=== PATIENT | male | born 1935 | race Caucasian/White ===

== ENCOUNTER 2016-11-27 17:22 | Inpatient (IN) | payer MEDICARE, BC ==
--- NOTE | ~2016-11-27 | HP ---
History And Physical [address] [address] NAME: RAFITA PACK : 37 STATUS : ADM IN [facility]#: [id number] AGE: 81 ADM/REG DATE : 11/27/16 MR#: [id number] REPORT SERV DATE: 11/28/16 DICTATED BY: BRITT ROGERS DATE: 11/27/16 REPORT STATUS : Draft TRANSCRIBED BY: VICKI DATE: 11/27/16 DATE OF ADMISSION: 11/27/2016 CHIEF COMPLAINT: Status post fall on Friday with intractable left hip pain and inability to walk since then. HISTORY OF PRESENT ILLNESS: This is a very pleasant 81-year-old gentleman. He has a history of coronary artery disease, status post CABG in 1986. He has a PTCA and stent performed by Dr. Perez in 2015, also history of AAA repair and right lower extremity bypass as well as carotid graft, history of chronic kidney disease stage 3 with a baseline creatinine around 1.7, history of hypertension, COPD with a prior tobacco abuse, hyperlipidemia, degenerative joint disease, osteoarthritis, and hearing loss. That he had an accidental fall on Friday, he tripped over a hose outside his house and after that, he used a walker and help of his to get into the house. He was not able to walk since then, but he has not sought any immediate medical attention. However, since the pain and inability to walk became much more severe, the patient has decided to present to emergency room where after initial evaluation, Hospitalist Service has been asked for admission, further evaluation, and treatment since the patient has been diagnosed with left hip fracture. The patient did not have any chest pain or increasing shortness of breath. No PND or orthopnea. No presyncopal or syncopal episodes. No nausea. No vomiting. No diarrhea or constipation. No other complaints. PAST MEDICAL HISTORY: Significant for coronary artery disease, status post CABG, status post PTCA and stent performed by Dr. Perez in 2015. He has a history of left subclavian vein occlusion, history of peripheral vascular disease with AAA repair, history of chronic kidney disease stage 3 with a creatinine 1.7, history of hypertension, COPD with prior tobacco abuse, quitting in 2010, hyperlipidemia, degenerative joint disease, osteoarthritis, hearing loss. PAST SURGICAL HISTORY: Includes CABG in 1986, also right lower extremity bypass and triple AAA repair, appendectomy, penile implant, and ear surgery. SOCIAL HISTORY: He does not smoke. He quit in 2010. No alcohol. No IV drugs. ALLERGIES: HE DOES NOT HAVE ANY DRUG ALLERGIES. FAMILY HISTORY: Significant for coronary artery disease and CHF. MEDICATIONS: At home include albuterol, aspirin, Lipitor, Coreg, Plavix, Lasix, Neurontin, Nitrostat, Percocet, and Zoloft. REVIEW OF SYSTEMS: A 14-point review of systems has been obtained and pertinent positive has been listed into the history of present illness. Otherwise, negative except those underlying above. PHYSICAL EXAMINATION: VITAL SIGNS: Currently, the patient is afebrile. Blood pressure 163/57, heart rate 71, History And Physical [address] [address] NAME: RAFITA PACK : 37 STATUS : ADM IN [facility]#: [id number] AGE: 81 ADM/REG DATE : 11/27/16 MR#: [id number] REPORT SERV DATE: 11/28/16 DICTATED BY: BRITT ROGERS DATE: 11/27/16 REPORT STATUS : Draft TRANSCRIBED BY: IVCKI DATE: 11/27/16 respiratory rate 14, saturating 96% on room air. GENERAL: He is a very pleasant, well-developed, well-nourished, gentleman, hard of hearing, in no acute distress. He is alert and oriented x3. Nonfocal. He follows commands appropriately. HEENT: Mucous membranes are moist. NECK: Supple. No thyromegaly. No lymphadenopathy. No JVD appreciated. CHEST: Eval shows bilateral air entry, clear anteroposterior. No wheezes, crackles, or rhonchi appreciated. CARDIOVASCULAR: He is regular rate and rhythm. S1, S2 positive. No S3, no S4. No murmurs, rubs, or gallops appreciated. ABDOMEN: Soft. Positive bowel sounds. Nontender. No guarding. No rebound. EXTREMITIES: No clubbing, cyanosis, or edema. NEUROLOGIC: He is alert and oriented x3. He follow all his commands. Cranial nerves appear intact. LABORATORY DATA: Labs from today include, sodium 138, potassium 4.5, chloride 103, CO2 of 24, BUN 37, creatinine 1.70, glucose is 114. White count is 13, hemoglobin 11.8, hematocrit 36.4, and platelets are 184. His INR is 1.2. His chest x-ray, portable, does not show any acute cardiopulmonary abnormalities with prior CABG and AP x-ray showed a left hip fracture. ASSESSMENT AND PLAN: This is a very pleasant 81-year-old gentleman status post fall with. 1. Left hip fracture. 2. History of coronary artery disease, status post prior coronary artery bypass graft, status post percutaneous transluminal coronary angioplasty and stent. 3. Peripheral vascular disease. 4. History of abdominal aortic aneurysm repair. 5. Chronic kidney disease stage 3. 6. Hypertension. 7. Chronic obstructive pulmonary disease. 8. Hyperlipidemia. 9. Degenerative joint disease, osteoarthritis. The patient is going to be admitted to Hospitalist Service. We are going to consult Orthopedic which I talked personally with Dr. Bosch for a possible surgery in the morning. Keep him n.p.o. past mid 9, reasonable pain and nausea control. We are going to check on set of cardiac enzymes. Check UA urine cultures as well and continue his home medications including aspirin and Plavix after discussing with Dr. Bosch. 10.History of coronary artery disease with prior coronary artery bypass graft and recent percutaneous transluminal coronary angioplasty and stent in 2016. We will check a set of cardiac enzymes. Continue beta maxwell. Continue his aspirin and Plavix for right now and consult Dr. Perez from Cardiology Service for clearance. 11.History of peripheral vascular disease, status post right lower extremity bypass and abdominal aortic aneurysm repair. 12.Hypertension. We will continue beta maxwell and provide p.r.n. hydralazine as needed. 13.Chronic obstructive pulmonary disease with history of tobacco abuse. Provide p.r.n. nebulizer as needed. History And Physical [address] [address] NAME: RAFITA PACK : 37 STATUS : ADM IN PAT#: [id number] AGE: 81 ADM/REG DATE : 11/27/16 MR#: [id number] REPORT SERV DATE: 11/28/16 DICTATED BY: BRITT ROGERS DATE: 11/27/16 REPORT STATUS : Draft TRANSCRIBED BY: VICKI DATE: 11/27/16 14.Hyperlipidemia. Continue his statins. We will provide reasonable pain and nausea control as well as GI and DVT prophylaxis with SCDs. That has been discussed extensively with the patient as well as the patient's . All the questions have been answered in full. Further workup and recommendation pending above. It is worthwhile to note that the patient is going to be followed up by Hospitalist Service. CF/MODL Britt Rogers M.D. / [id number] CC: MD Valeriano Aguilar M.D.
--- NOTE | ~2016-11-27 | IDS ---
Interim Discharge Summary [facility] [address] [place]. [address] NAME: RAFITA PACK : 37 STATUS : ADM IN [facility]#: [id number] AGE: 81 ADM/REG DATE : 11/27/16 MR#: [id number] REPORT SERV DATE: 12/01/16 DICTATED BY: PRIYANKA DUKES DATE: 12/01/16 REPORT STATUS : Draft TRANSCRIBED BY: MODL DATE: 12/01/16 ADMISSION DATE: 11/27/2016 DISCHARGE DATE: CONSULTANTS: 1. Dr. Ken Fagan, Cardiology. 2. Dr. Bam Funes, Orthopedic Surgery. PROBLEM LIST: 1. Acute left hip fracture due to trip and fall requiring surgical repair 11/28/2016. 2. Acute blood loss anemia superimposed on chronic anemia with iron deficiency and B12 deficiency. 3. COPD with mild exacerbation. 4. Chronic systolic congestive heart failure with left ventricular ejection fraction 35%. 5. History of coronary artery bypass 1986 and previous stent to a vein graft to the marginal artery in 2014 with known 50% to 75% stenosis at the origin of the posterior descending coronary artery as of heart catheterization, 03/2016. Stent placed to the vein graft on the second marginal as of 04/04/2016. 6. Peripheral arterial disease with previous abdominal aortic aneurysm repair, previous right leg bypass, and a known occluded left subclavian artery. 7. Postoperative ileus. 8. Stage 3 chronic kidney disease. 9. Hypertension. 10.Hard of hearing. 11.History of osteoarthritis. HISTORY: The patient tripped over a hose in the yard, fell, was not able to walk well, finally presented to the emergency room several days after this. He was found to have a hip fracture on the left side. He was admitted to our team and was felt to need surgical intervention. Orthopedics, Dr. Funes, saw the patient and did a surgical repair of that fracture on 11/28/2016. Postop, the patient has had some mild worsening of his COPD. He has a chronic wet cough that he states has not much worse than as usual. He is getting some supplemental oxygen and nebulizer treatments. He has also had some postoperative ileus which has responded so far to lactulose. The patient is making slow, but steady progress with physical therapy and will need referral to inpatient rehab. Per Orthopedics, he is now on Coumadin postoperatively and he was on aspirin and Plavix chronically, but based on the Lancet study that showed that leaving aspirin off did not increase the risk of thrombosis and it did decrease the risk of bleeding when the patient had to be on Plavix and Coumadin. At this time, we will just have him on Plavix and Coumadin and leave the aspirin off. His aspirin may then be resumed after the prophylactic Interim Discharge Summary [address] [place]. [address] NAME: RAFITA PACK : 37 STATUS : ADM IN PAT#: [id number] AGE: 81 ADM/REG DATE : 11/27/16 MR#: [id number] REPORT SERV DATE: 12/01/16 DICTATED BY: PRIYANKA DUKES DATE: 12/01/16 REPORT STATUS : Draft TRANSCRIBED BY: VICKI DATE: 12/01/16 Coumadin therapy has been completed after the hip fracture repair. RSG/VICKI Priyanka Dukes M.D. / [id number] CC: Kylie Selby M.D.
--- NOTE | ~2016-11-27 | CN ---
Consultation Report [facility] [address] [place]. [address] NAME: RAFITA ALLAN : 37 STATUS : ADM IN [facility]#: [id number] AGE: 81 ADM/REG DATE : 11/27/16 MR#: [id number] REPORT SERV DATE: 11/29/16 DICTATED BY: DOYLE FAGAN DATE: 11/29/16 REPORT STATUS : Draft TRANSCRIBED BY: MODL DATE: 11/29/16 CARDIOLOGY CONSULTATION DATE OF CONSULTATION: 11/29/2016 PRIMARY PLATFORM ATTENDANT: Dr. Herndon. CHIEF COMPLAINT: Fall. REASON FOR CONSULTATION: History of congestive heart failure. HISTORY OF PRESENT ILLNESS: Mr. Allan is a very pleasant 81-year-old white man with history of coronary artery disease, peripheral artery disease, and congestive heart failure. He was in his usual state of health until two days ago, when he fell and injured his left hip. 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 He underwent hip surgery yesterday by Dr. Funes. He is now complaining of mild left hip pain. He has not had any loss of consciousness or dizziness prior to or after his fall. He has had some fatigue, chest heaviness, and shortness of breath, which is about his baseline. He has not had any palpitations. No syncope, dizziness, or edema. REVIEW OF SYSTEMS: All other systems are negative. ALLERGIES: NO KNOWN DRUG ALLERGIES. MEDICATIONS AT HOME: Included albuterol, aspirin, atorvastatin, carvedilol, clopidogrel, furosemide, gabapentin, nitroglycerin, Zoloft, and Percocet. CARDIAC RISK FACTORS: Hypertension, cholesterol, former tobacco, quit in 2010. Positive family history. Denies diabetes. SOCIAL HISTORY: The patient lives in [place], [place]. He is . He has three children, alive and well. He is retired. FAMILY HISTORY: Father at age 63 of heart disease. Brother had heart disease. PAST MEDICAL HISTORY: As per Dr. Herndon's note from 11/18/2016, chronic systolic congestive heart failure with decreased ejection fraction of 35% most recently, 4.5 cm infrarenal abdominal aortic aneurysm, coronary artery disease, status post coronary bypass grafting and percutaneous intervention, carotid bruits, chronic kidney disease stage III, COPD, hyperlipidemia, peripheral vascular disease, status post right femorofemoral bypass, ventricular tachycardia, and hyperlipidemia. Consultation Report [facility] [address] [place]. [address] NAME: RAFITA ALLAN : 37 STATUS : ADM IN PAT#: [id number] AGE: 81 ADM/REG DATE : 11/27/16 MR#: [id number] REPORT SERV DATE: 11/29/16 DICTATED BY: DOYLE FAGAN DATE: 11/29/16 REPORT STATUS : Draft TRANSCRIBED BY: VICKI DATE: 11/29/16 PHYSICAL EXAMINATION: GENERAL: He is a well-developed, well-nourished, very elderly white man, in moderate left hip pain. VITAL SIGNS: Blood pressure is 103/51, pulse 75, temperature 98 degrees Fahrenheit. Weight is 73.9 kilos. HEENT: Carotids 2+ and symmetrical. Healed surgical scars. Bilateral carotid bruits. No JVD. No thyromegaly. LUNGS: Clear anteriorly. No use of accessory muscles. CHEST: Healed sternotomy and additional surgical scars. HEART: Regular rate and rhythm without murmur, gallop, or rub. ABDOMEN: Positive bowel sounds. Soft, nontender. EXTREMITIES: Pulses 2+ and symmetrical. No cyanosis, clubbing, or edema. Left hip is bandaged. He is rotated on the bed. BACK: No CVA tenderness. MUSCULOSKELETAL: Good tone. NEURO: Alert and oriented x3. Diminished auditory acuity. LABORATORY AND DIAGNOSTIC STUDIES: The EKG reveals sinus rhythm, left axis deviation, baseline artifact, nonspecific ST-T wave changes consistent with anterolateral ischemia, compared to 04/05/2016, no significant change by the official reading. The laboratory examination includes hemoglobin of 9.7, hematocrit 31.1. INR 1.3. Sodium 143, potassium 4.8, chloride 110, CO2 of 24, glucose 97, BUN 41, creatinine 1.3. The total left hip prosthesis in anatomic alignment. The chest x-ray reveals cardiomegaly, stable, increased width of the upper mediastinum. The BNP level is 699. Hemoglobin A1c is 5.6. IMPRESSION: 1. Left hip fracture, status post left hip surgery yesterday, doing okay so far. 2. Chronic systolic congestive heart failure with last LVEF of 35%. 3. Coronary artery disease, status post coronary artery bypass grafting, stable. 4. Peripheral artery disease, status post surgeries with history of abdominal aortic aneurysm. 5. Chronic kidney disease, stage III. 6. Cardiac risk factors including hypertension, cholesterol, former tobacco, and positive family history. 7. History of ventricular tachycardia, on beta-blockers. RECOMMENDATIONS: 1. Already postop, doing okay, watch for congestive heart failure. 2. Continue medications. 3. Consider ICD therapy at some point. Consultation Report [address] [address] NAME: RAFITA ALLAN : 37 STATUS : ADM IN [facility]#: [id number] AGE: 81 ADM/REG DATE : 11/27/16 MR#: [id number] REPORT SERV DATE: 11/29/16 DICTATED BY: DOYLE FAGAN DATE: 11/29/16 REPORT STATUS : Draft TRANSCRIBED BY: VICKI DATE: 11/29/16 GAB/VICKI Doyle Fagan M.D. / [id number] CC: Kylie Pineda R. HENRY
--- NOTE | ~2016-11-27 | HP ---
History And Physical [facility] [place]. [address] NAME: RAFITA PACK : 37 STATUS : ADM IN [facility]#: [id number] AGE: 81 ADM/REG DATE : 11/27/16 MR#: [id number] REPORT SERV DATE: 11/28/16 DICTATED BY: TEDDY GOODE DATE: 11/28/16 REPORT STATUS : Draft TRANSCRIBED BY: MODL DATE: 11/28/16 DATE OF ADMISSION: 11/27/2016 CHIEF COMPLAINT: Left hip pain. HISTORY: A 81-year-old male who fell and injured his left hip. 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 He denies pain or injury elsewhere. No associated loss of consciousness, shortness of breath, chest pain etc. PHYSICAL EXAMINATION: HEENT: Atraumatic, normocephalic. NECK: Supple. CHEST: Symmetric, nontender. LUNGS: Per AA evaluation. CV: Regular. ABDOMEN: Soft. No mass. EXTREMITIES: Left upper extremity is short and externally rotated. Skin is intact. Compartment supple. 2+ pulses. NEURO: Sensorimotor without deficit. X-RAY: Displaced left femoral neck fracture. ASSESSMENT: Displaced left femoral neck fracture. PLAN: Left total hip arthroplasty. Risks, benefits, etc, explained, and the patient wishes to proceed. WTB/VICKI Paulette Goode M.D. / [id number] CC: Kylie Pineda M.D.
--- NOTE | ~2016-11-27 | DS ---
Discharge Summary [address] [place]. [address] NAME: RAFITA ALLAN : 37 STATUS : DIS IN PAT#: [id number] AGE: 81 ADM/REG DATE : 11/27/16 MR#: [id number] REPORT SERV DATE: 12/07/16 DICTATED BY: ROSELYN NIÑO DATE: 12/06/16 REPORT STATUS : Draft TRANSCRIBED BY: MODL DATE: 12/06/16 ADMISSION DATE: 11/27/2016 DISCHARGE DATE: 12/06/2016 The patient was admitted to the Hospitalist Service. CONSULTANTS: 1. Dr. Jose De Jesus Funes, Orthopedics. 2. Dr. Ken Fagan, Cardiology. DISCHARGE DIAGNOSES: 1. Left total hip arthroplasty, status post mechanical fall with fracture. 2. Hospital-acquired pneumonia, treated. 3. Acute exacerbation of chronic obstructive pulmonary disease. 4. Chronic kidney disease, stage 3. 5. Chronic systolic heart failure with known ejection fraction of 35%. 6. Acute blood loss anemia postoperatively with chronic iron-deficiency anemia and a low B12 level. 7. History of peripheral vascular disease with abdominal aortic aneurysm repair. 8. Coronary artery disease, status post coronary artery bypass grafting in 1986 with subsequent percutaneous coronary intervention and stent in 2015. 9. Hypertension. 10.Depression. HISTORY OF PRESENT ILLNESS: For complete history, please refer to admission H and P by Dr. Britt Wheeler and interim discharge summary by Dr. Bill Dukes. This discharge summary covers dates 12/02/2016 through 12/06/2016. I saw Mr. Allan on 12/02/2016. He was status post left total hip arthroplasty, day #4. He had a loose nonproductive cough. A procalcitonin level of 0.36. His vital signs were stable. He denied any chest pain or shortness of breath. He did have a small bowel movement first since surgery. On 12/02/2016, I did resume his home dose Lasix 20 mg p.o. daily. Plans were being made for halfway at discharge as patient was too weak to return home. At this point, on 12/03/2016, Mr. Allan complained of not feeling well in the morning. He had nausea and vomiting with some questionable diarrhea. His reported that he did not eat any dinner the night before and no breakfast that morning. She also noted that he had a cough. He was taking 2 person assist to get up to the bedside commode and his weakness continued. His abdomen was slightly distended. He had hypoactive bowel sounds. He did have expiratory wheezes bilaterally with scattered rhonchi on my assessment. I ordered a portable chest x-ray as he had a fever earlier in the morning of 100.1. In addition, I ordered a KUB for nausea and vomiting with abdominal distention. I placed him on Mucinex 600 mg p.o. b.i.d. Also started him on Pulmicort and Brovana breathing treatments b.i.d. His chest x-ray showed right lower lobe increased markings suggestive of a developing right lower lobe pneumonia. His KUB showed no evidence of acute abnormality within the abdomen. Mr. Allan was placed on Rocephin 1 g IV q.24 hours. On 12/04/2016, Mr. Shayan Padilla [address] [address] NAME: RAFITA ALLAN : 37 STATUS : DIS IN [facility]#: [id number] AGE: 81 ADM/REG DATE : 11/27/16 MR#: [id number] REPORT SERV DATE: 12/07/16 DICTATED BY: ROSELYN NIÑO DATE: 12/06/16 REPORT STATUS : Draft TRANSCRIBED BY: VICKI DATE: 12/06/16 Jerrell was feeling much better. His procalcitonin level was 0.07. He denied any chest pain, shortness of breath, nausea, or vomiting. He was eating better, and they were aware that we were treating him for his pneumonia. His lungs were clear. He had no wheezing and overall progressing nicely. [facility] was looking at Mr. Allan for potential placement for rehab post acute care discharge. On 12/05/2016, Mr. Allan continued to do well. At this point, he was asking for [facility]. He denied any chest pain, shortness of breath, or abdominal pain. He continued to have a loose nonproductive cough. He still had some scattered rhonchi. He was afebrile and continuing to receive the Rocephin, however, later that day, we discontinued the Rocephin and changed him to Ceftin 500 mg p.o. b.i.d., to start on 12/06/2016 with a followup chest x-ray on the morning of 12/06/2016. On 12/06/2016, upon my assessment in the morning, he was sitting up in the chair. He reported feeling the best he had felt since he had been admitted. He denied any symptoms. His was at bedside and at this point, [facility] had accepted Mr. Allan for inpatient rehabilitation. His O2 saturation was 96 to 97 on 2 L. His vital signs were stable. He did still have a loose nonproductive cough and a very faint scattered expiratory wheeze. Chest x-ray showed improving atelectasis or consolidation. No new airspace disease. Initially, we were told that [facility] would have a bed available for Mr. Allan on Friday, however, later on this date, we were told that a bed was available and Mr. Allan would transfer today. Therefore, on the afternoon of 12/06/2016, he did transfer to [facility] in stable condition. DISCHARGE INSTRUCTIONS: Include: 1. Diet, a 2 g sodium, cardiac diet is recommended. 2. Activity as tolerated with PT and OT evaluate and treat. DISCHARGE MEDICATIONS: As follows: 1. Lipitor 40 mg p.o. at bedtime. 2. Carvedilol 25 mg p.o. b.i.d. 3. Plavix 75 mg p.o. daily. 4. Ceftin 500 mg p.o. b.i.d. Discontinue after last dose on 12/09/2016. 5. Vitamin B12, 1000 mcg p.o. daily. 6. Colace 100 mg p.o. b.i.d. 7. Lasix 20 mg p.o. daily. 8. Gabapentin 600 mg p.o. b.i.d. 9. Ferrous sulfate 300 mg p.o. with breakfast and supper. 10.Folic acid 1 mg p.o. daily. 11.Guaifenesin 600 mg p.o. b.i.d. 12.Theragran 1 tablet p.o. daily. 13.Sertraline 100 mg p.o. daily. 14.Coumadin 2 mg p.o. daily. 15.Albuterol ProAir HFA inhaler two puffs t.i.d. p.r.n. 16.DuoNeb unit dose q.4 while awake. 17.Tylenol 650 mg p.o. or p.r. q.4 hours p.r.n. 18.Mylanta 30 mL p.o. p.r.n. 19.Dulcolax 15 mg p.o. p.r.n. 20.Dulcolax 10 mg suppository p.r.n. 21.Hydrocodone 7.5/325 mg one to two p.o. q.4 hours p.r.n. Discharge Summary [address] [place]. [address] NAME: RAFITA ALLAN : 37 STATUS : DIS IN PAT#: [id number] AGE: 81 ADM/REG DATE : 11/27/16 MR#: [id number] REPORT SERV DATE: 12/07/16 DICTATED BY: ROSELYN NIÑO DATE: 12/06/16 REPORT STATUS : Draft TRANSCRIBED BY: VICKI DATE: 12/06/16 22.Milk of magnesia 30 mL p.o. p.r.n. constipation. 23.Nitroglycerin sublingual 0.4 mg p.r.n. chest pain. 24.Zofran 4 mg p.o. q.4 hours p.r.n. nausea and vomiting. 25.MiraLax one packet p.o. b.i.d. p.r.n. 26.Senokot 2 tablets p.o. at bedtime p.r.n. 27.Ultram 50 mg p.o. q.4 hours p.r.n. 28.Symbicort 160/4.5 mcg, two puffs b.i.d. Rinse mouth after each use. We are holding Mr. Allan's aspirin 81 mg p.o. daily at this point since he is on Coumadin and Plavix. He may resume his low-dose aspirin daily after his Coumadin is discontinued. Other discharge instructions include he will follow up with his primary care provider, Dr. Carlos Lerma after discharge from rehab. He will also follow up with his videotape editor at the appointment previously scheduled on 12/23/2016. BALAJI Minerva Niño [facility]- / [id number] CC: Kylie Pineda M.D.
--- NOTE | ~2016-11-27 | OP ---
Record Of Operation [facility] [address] [place]. [address] NAME: RAFITA PACK : 39 STATUS : ADM IN PAT#: [id number] AGE: 81 ADM/REG DATE : 11/27/16 MR#: [id number] REPORT SERV DATE: 12/04/16 DICTATED BY: TEDDY GOODE DATE: 12/04/16 REPORT STATUS : Draft TRANSCRIBED BY: MODL DATE: 12/04/16 DATE OF PROCEDURE: 11/27/2016 PREOPERATIVE DIAGNOSIS: Displaced left femoral neck fracture. POSTOPERATIVE DIAGNOSIS: Displaced left femoral neck fracture. PROCEDURE: Uncemented total hip arthroplasty, Tri-Lock. SIDE: Left. MICA INSPECTOR: ANESTHESIA: See chart. SIZE: See chart. ESTIMATED BLOOD LOSS: About 100 mL. INDICATIONS FOR SURGERY: PROCEDURE: The patient was taken to the operating room and placed supine on the table without incident. Anesthetic was induced per the anesthesiologist. A Ceballos catheter was placed by the nurse in the standard sterile technique. The correct side for the procedure was identified by preoperative markings and matched with the consent form. All personnel in the room were in agreement regarding the procedure, patient, and side. The patient was then carefully positioned and carefully padded and prepped and draped in the normal sterile fashion. The patient received prophylactic preoperative antibiotics at the appropriate time. The preoperative x-ray was brought up on the monitor. Again, this was reviewed with the staff in the room. According with the preoperative plan, and angled, an anterolateral incision was made centered over the trochanter extending from proximal posterior to distal anterior. Electrocautery was used to maintain meticulous hemostasis. The IT band was split in line with its fibers. A Charnley retractor was placed over saline moistened laps. A standard anterolateral approach to the hip was carried out dissecting in line with the vastus medialis fibers lifting the inferior 20% of the vastus medialis, proximally the interior 20% of the gluteus medius and gluteus minimus tendons off the anterior capsule. Periosteal elevator was used to elevate soft tissue gently directly off the proximal anterior femoral bone. Appropriate retractors were carefully placed. Complete anterior capsulectomy was performed. The hip was then carefully dislocated with a combination of traction maneuver by the assistant store manager sales and scooping the ball out of the socket with a Hohmann. A femoral neck osteotomy was marked according to what had been preoperatively planned with a broach as a template. The distance for the femoral neck osteotomy was measured with a ruler. A femoral neck osteotomy was made with an oscillating saw under appropriate retraction. Meticulous hemostasis was again obtained. The leg was then brought up out of the anterior bag and Record Of Operation [facility] [address] [place]. [address] NAME: RAFITA PACK : 37 STATUS : ADM IN PAT#: [id number] AGE: 81 ADM/REG DATE : 11/27/16 MR#: [id number] REPORT SERV DATE: 12/04/16 DICTATED BY: TEDDY GOODE DATE: 12/04/16 REPORT STATUS : Draft TRANSCRIBED BY: VICKI DATE: 12/04/16 positioned with the lower extremity in external rotation and slight flexion. Acetabular retractors were placed carefully palpating to be sure that they were directly on the bone. The acetabular labrum was excised with electrocautery and rongeur. Pulvinar fat was removed with a large curette and rongeur and again meticulous hemostasis was obtained. Sequential reamers were used in the acetabulum to 1 mm. less than the final size which was chosen. This was felt to give excellent interference fit. The acetabular fossa was then copiously irrigated with pulsatile lavage and actual acetabular component was placed and impacted and checked to make sure it was down snug. The overall alignment was checked. The acetabular separator inserter was then removed. Screws were placed in the standard fashion. A drill, depth gauge and self tapping screw placement taking care not to plunge as the drill holes were carefully placed. A trial liner was then placed and attention directed back to the proximal femur. The leg was placed back into the anterior bag. The proximal femur was prepared using a box chisel following by a T-handled reamer to determine the intramedullary alignment. This was followed by sequential broaches up to the final broach. Once it was seated in the appropriate position, a Calcar reamer was used to plane the proximal femur. Trial reduction was then done with a trial prosthetic ball and neck. A straight edge was used to compare the tip of the trochanter to center of the ball relationship to what had been noted on the preoperative x-ray. Careful reduction was then done of the total hip. Palpation was done to ascertain and compare leg lengths by palpating the nonoperative leg and also by checking soft tissue tension. The stability of the hip was checked in full extension with full external rotation and in full flexion with adduction, flexion and internal rotation. The hip was then redislocated with a bone hook. The femoral trial and femoral broach were removed. The acetabulum was then prepared under appropriate retraction by removing the trial liner. A central hole eliminator was placed and tightened. The shell was irrigated out. The actual insert was placed and impacted and then checked to be sure it was down snug with a joker. The leg was again positioned in the bag. The proximal femur exposed, irrigated and the actual thermal prosthesis was taken from the renewals representative and impacted. Once it was down, the trunnion was cleansed with a wet and dry lap and the prosthetic thermal head was placed and impacted and checked to be sure it was down snug. The acetabulum was irrigated and reduction was obtained. Again, we checked soft tissue tension, leg length and stability as described above. The hip was closed in a layered fashion with a 5 mm. Mersilene tape placed through a single drill hole in the proximal anterior/superior trochanter reattaching the gluteus medius and minimus fibers. The vastus lateralis, gluteus medius, and gluteus minimus were then closed in a sleeve. Drain was placed between the vastus and the IT band exiting distally anteriorly. The IT band was closed. Subcutaneous closure and skin closure were then obtained. A sterile dressing was applied. The patient was carefully positioned into a supine position and then awakened. The patient was then carefully transferred to the stretcher to be returned to the postoperative care unit without incident. COMPLICATION: None. SPECIMENS: Left femoral head. Record Of Operation [address] [place]. [address] NAME: RAFITA PACK : 39 STATUS : ADM IN [facility]#: [id number] AGE: 81 ADM/REG DATE : 11/27/16 MR#: [id number] REPORT SERV DATE: 12/04/16 DICTATED BY: TEDDY GOODE DATE: 12/04/16 REPORT STATUS : Draft TRANSCRIBED BY: MODSusannah DATE: 12/04/16 WTB/MODL Paulette Goode M.D. / [id number] CC: Kylie Pineda M.D.
[~2016-11-27 17:22] MED LIST: ASAB PO; BRILINTA90 MG PO; COREG25 PO; COREG6 PO; DUONEB INH; ENDOCET1 TAB PO; LIPITOR40 PO; LOTE10 PO; NEUR100 PO; NEUR300 PO; NEUR400 PO; NITROSTAT0.4 MG SL; PERCOCET1 TA3 PO; PLAVIX PO; PLETAL100 PO; PLETAL50 PO; PRAVACHOL40 MG PO; PROAIR HFA INH; VYTORIN 10/40 T1 TAB PO; ZOL100 PO; ZOL50 PO
[2016-11-27 18:07] LABS: BASOPHILS 0.1 %; BASOPHILS ABSOLUTE 0.01 10/3/uL (0.0-0.16); EOSINOPHILS 0.4 %; EOSINOPHILS ABSOLUTE 0.05 10/3/uL (0.0-0.53); HEMATOCRIT 36.4 % (40.0-51.0); HEMOGLOBIN 11.8 g/dL (13.6-17.8); IMMATURE GRANULOCYTES 0.3 %; IMMATURE GRANULOCYTES ABSOLUTE 0.04 10/3/uL (0.0-0.11); LYMPHOCYTES ABSOLUTE 1.04 10/3/uL (0.67-4.30); MEAN CORPUS HGB CONC 32.4 g/dL (32.0-36.0); MEAN CORPUSCULAR HEMOGLOB 32.7 pg (26.0-34.0); MONOCYTES 9.2 %; NEUTROPHILS ABSOLUTE 10.66 10/3/uL (2.02-8.40); PLATELET COUNT 184 10/3/uL (150-400); RBC DISTRIBUTION WIDTH 13.6 % (12.0-16.0); RED CELL COUNT 3.61 10/6/uL (4.7-6.1)
[2016-11-27 18:10] LABS: ER CBC TAT 0 Hrs 08 Mins; MANUAL DIFF NO %; MEAN CORPUSCULAR VOLUME 100.8 fL (80-100)
[2016-11-27 18:16] LABS: INTERNATIONAL NORMAL RATI 1.2 UNITS (-); PARTIAL THROMBO TIME 33.4 SEC (22.5-37.2)
[2016-11-27 18:23] LABS: CALCIUM, SERUM 8.6 MG/DL (8.5-10.4); CHLORIDE, SERUM 103 MMOL/L (96-112); CO2 (CARBON DIOXIDE) 24 MMOL/L (24-34); GFR AFRICAN AMERICAN 43 ML/MIN (>=60); GFR NON AFRICAN AMERICAN 38 ML/MIN (>=60); SODIUM, SERUM 138 MMOL/L (135-148)
[2016-11-27 18:28] LABS: BUN (BLOOD UREA NITROGEN) 37 MG/DL (6-23); GLUCOSE, SERUM 114 MG/DL (60-99); POTASSIUM, SERUM 4.5 MMOL/L (3.5-5.3)
[2016-11-27] MEDS ORDERED: L20 PO (18:54)
[2016-11-27] MEDS ORDERED: PCET PO (18:54)
[2016-11-27] MEDS ORDERED: ZOL100 PO (18:54)
[2016-11-27] MEDS ORDERED: PROAIR HFA INH (18:54)
[2016-11-27] MEDS ORDERED: LIPITOR40 PO (18:55)
[2016-11-27] MEDS ORDERED: ASAB PO (18:55)
[2016-11-27] MEDS ORDERED: NITROSTAT0.4 MG SL (18:55)
[2016-11-27] MEDS ORDERED: PLAVIX PO (18:55)
[2016-11-27] MEDS ORDERED: COREG25 PO (18:55)
[2016-11-27] MEDS ORDERED: NEUR600 PO (18:55)
[2016-11-27 23:21] LABS: B NATRIURETIC PEPTIDE (BNP) 699.2 PG/ML (< 100.0)
[2016-11-27 23:23] LABS: FREE T4 1.03 NG/DL (0.76-1.46)
[2016-11-27 23:24] LABS: CHOL/HDL RATIO(NOT ORDER) 2.1 (0-5); PHOSPHORUS, SERUM 3.2 MG/DL (2.5-4.5); TROPONIN I 0.11 NG/ML (<0.05); ULTRASENSITIVE TSH 2.95 MCIU/ML (0.358-3.740)
[2016-11-28 03:24] LABS: ASCORBIC ACID (UR NOT ORDER) NEG (NEG); BILIRUBIN, URINE NEGATIVE (NEG); KETONE, URINE NEGATIVE (NEG); LEUKOCYTE ESTERASE(NOT OR TRACE (NEG); WBC (NOT ORDERED) (RFLEX) 9 (0-5)
[2016-11-28 05:14] LABS: BASOPHILS 0.2 %; BASOPHILS ABSOLUTE 0.02 10/3/uL (0.0-0.16); EOSINOPHILS 1.5 %; EOSINOPHILS ABSOLUTE 0.15 10/3/uL (0.0-0.53); HEMATOCRIT 34.9 % (40.0-51.0); HEMOGLOBIN 11.3 g/dL (13.6-17.8); IMMATURE GRANULOCYTES 0.3 %; IMMATURE GRANULOCYTES ABSOLUTE 0.03 10/3/uL (0.0-0.11); LYMPHOCYTES 9.9 %; LYMPHOCYTES ABSOLUTE 1.02 10/3/uL (0.67-4.30); MANUAL DIFF NO %; MEAN CORPUS HGB CONC 32.4 g/dL (32.0-36.0); MEAN PLATELET VOLUME 9.2 fL (9.2-13.0); MONOCYTES ABSOLUTE 1.03 10/3/uL (0.21-1.20); NEUTROPHILS 78.1 %; NEUTROPHILS ABSOLUTE 8.08 10/3/uL (2.02-8.40); PLATELET COUNT 190 10/3/uL (150-400); RBC DISTRIBUTION WIDTH 13.7 % (12.0-16.0); RED CELL COUNT 3.42 10/6/uL (4.7-6.1); WHITE BLOOD CELLS 10.3 10/3/uL (4.5-10.5)
[2016-11-28 05:21] LABS: INTERNATIONAL NORMAL RATI 1.2 UNITS (-); PROTIME (NOT ORD) 15.2 SEC (12.0-14.5)
[2016-11-28 05:29] LABS: A/G RATIO 0.8 (0.7-1.9); BUN (BLOOD UREA NITROGEN) 38 MG/DL (6-23); CALCIUM, SERUM 8.2 MG/DL (8.5-10.4); CHLORIDE, SERUM 105 MMOL/L (96-112); CO2 (CARBON DIOXIDE) 24 MMOL/L (24-34); CREATININE 1.75 MG/DL (0.70-1.30); GFR AFRICAN AMERICAN 42 ML/MIN (>=60); GFR NON AFRICAN AMERICAN 36 ML/MIN (>=60); GLUCOSE, SERUM 124 MG/DL (60-99); POTASSIUM, SERUM 4.3 MMOL/L (3.5-5.3); SGOT(AST) 65 U/L (5-40); SGPT(ALT) 23 U/L (5-65); SODIUM, SERUM 139 MMOL/L (135-148)
[2016-11-28 05:30] LABS: ALKALINE PHOSPHATASE 77 U/L (45-117)
[2016-11-28 07:47] LABS: GLYCOHEMOGLOBIN (HbA1c) 5.6 % (4.7-6.1)
[2016-11-29 05:49] LABS: INTERNATIONAL NORMAL RATI 1.3 UNITS (-); PROTIME (NOT ORD) 15.6 SEC (12.0-14.5)
[2016-11-29 05:53] LABS: BUN (BLOOD UREA NITROGEN) 41 MG/DL (6-23); CALCIUM, SERUM 7.9 MG/DL (8.5-10.4); CHLORIDE, SERUM 110 MMOL/L (96-112); CO2 (CARBON DIOXIDE) 24 MMOL/L (24-34); CREATININE 1.83 MG/DL (0.70-1.30); GFR AFRICAN AMERICAN 40 ML/MIN (>=60); GFR NON AFRICAN AMERICAN 34 ML/MIN (>=60); POTASSIUM, SERUM 4.8 MMOL/L (3.5-5.3); SODIUM, SERUM 143 MMOL/L (135-148)
[2016-11-29 05:57] LABS: HEMOGLOBIN 9.7 g/dL (13.6-17.8)
[2016-11-29 05:59] LABS: GLUCOSE, SERUM 97 MG/DL (60-99)
[2016-11-29 06:10] LABS: HEMATOCRIT 31.1 % (40.0-51.0)
[2016-11-30 04:26] LABS: INTERNATIONAL NORMAL RATI 1.4 UNITS (-); PROTIME (NOT ORD) 17.4 SEC (12.0-14.5)
[2016-11-30 04:33] LABS: BASOPHILS 0.2 %; BASOPHILS ABSOLUTE 0.02 10/3/uL (0.0-0.16); EOSINOPHILS 0.9 %; HEMATOCRIT 28.9 % (40.0-51.0); HEMOGLOBIN 9.3 g/dL (13.6-17.8); IMMATURE GRANULOCYTES 0.3 %; IMMATURE GRANULOCYTES ABSOLUTE 0.03 10/3/uL (0.0-0.11); LYMPHOCYTES 6.8 %; MEAN CORPUS HGB CONC 32.2 g/dL (32.0-36.0); MEAN CORPUSCULAR HEMOGLOB 32.9 pg (26.0-34.0); MEAN CORPUSCULAR VOLUME 102.1 fL (80-100); MEAN PLATELET VOLUME 9.2 fL (9.2-13.0); MONOCYTES 5.6 %; MONOCYTES ABSOLUTE 0.66 10/3/uL (0.21-1.20); NEUTROPHILS 86.2 %; NEUTROPHILS ABSOLUTE 10.08 10/3/uL (2.02-8.40); PLATELET COUNT 165 10/3/uL (150-400); RBC DISTRIBUTION WIDTH 13.5 % (12.0-16.0); RED CELL COUNT 2.83 10/6/uL (4.7-6.1); WHITE BLOOD CELLS 11.7 10/3/uL (4.5-10.5)
[2016-11-30 04:34] LABS: MANUAL DIFF NO %
[2016-11-30 04:36] LABS: CALCIUM, SERUM 7.9 MG/DL (8.5-10.4); CHLORIDE, SERUM 107 MMOL/L (96-112); CO2 (CARBON DIOXIDE) 23 MMOL/L (24-34); CREATININE 1.67 MG/DL (0.70-1.30); GFR AFRICAN AMERICAN 44 ML/MIN (>=60); GFR NON AFRICAN AMERICAN 38 ML/MIN (>=60); GLUCOSE, SERUM 107 MG/DL (60-99); POTASSIUM, SERUM 4.5 MMOL/L (3.5-5.3); SODIUM, SERUM 139 MMOL/L (135-148)
[2016-11-30 04:42] LABS: BUN (BLOOD UREA NITROGEN) 46 MG/DL (6-23)
[2016-11-30 10:21] LABS: % IRON SAT 5 % (20-50); FERRITIN 226 NG/ML (26-388); IRON BINDING CAPACITY 212 MCG/DL (250-450); IRON, SERUM 11 MCG/DL (35-150)
[2016-12-01 04:09] LABS: HEMATOCRIT 29.2 % (40.0-51.0); HEMOGLOBIN 9.3 g/dL (13.6-17.8); MEAN CORPUS HGB CONC 31.8 g/dL (32.0-36.0); MEAN CORPUSCULAR HEMOGLOB 32.3 pg (26.0-34.0); MEAN CORPUSCULAR VOLUME 101.4 fL (80-100); MEAN PLATELET VOLUME 9.1 fL (9.2-13.0); PLATELET COUNT 195 10/3/uL (150-400); RBC DISTRIBUTION WIDTH 13.6 % (12.0-16.0); RED CELL COUNT 2.88 10/6/uL (4.7-6.1); WHITE BLOOD CELLS 12.8 10/3/uL (4.5-10.5)
[2016-12-01 04:12] LABS: MANUAL DIFF YES %
[2016-12-01 04:21] LABS: CALCIUM, SERUM 8.3 MG/DL (8.5-10.4); CHLORIDE, SERUM 106 MMOL/L (96-112); CO2 (CARBON DIOXIDE) 23 MMOL/L (24-34); CREATININE 1.58 MG/DL (0.70-1.30); GFR AFRICAN AMERICAN 48 ML/MIN (>=60); GFR NON AFRICAN AMERICAN 41 ML/MIN (>=60); POTASSIUM, SERUM 4.1 MMOL/L (3.5-5.3); SODIUM, SERUM 140 MMOL/L (135-148)
[2016-12-01 04:24] LABS: INTERNATIONAL NORMAL RATI 2.6 UNITS (-)
[2016-12-01 04:27] LABS: PROTIME (NOT ORD) 27.3 SEC (12.0-14.5)
[2016-12-01 04:28] LABS: BUN (BLOOD UREA NITROGEN) 52 MG/DL (6-23); GLUCOSE, SERUM 136 MG/DL (60-99)
[2016-12-01 04:42] LABS: BAND NEUTROPHILS 4 %; LYMPHOCYTES 11 %; LYMPHOCYTES ABSOLUTE (CALC) 1.41 10/3/uL (0.67-4.30); MONOCYTES 6 %; MONOCYTES ABSOLUTE (CALC) 0.77 10/3/uL (0.21-1.20); NEUTROPHILS ABSOLUTE (CALC) 10.62 10/3/uL (2.02-8.40); SEGMENTED NEUTROPHIL (0) 79 %; TOTAL NUCLEATED CELLS 100
[2016-12-01 04:43] LABS: MACROCYTES 1+ (5-10/OIF) (0-5/OIF)
[2016-12-01 04:44] LABS: RBC MORPHOLOGY ABN (NORMAL)
[2016-12-02 05:17] LABS: INTERNATIONAL NORMAL RATI 2.3 UNITS (-)
[2016-12-02 05:22] LABS: BUN (BLOOD UREA NITROGEN) 52 MG/DL (6-23); CALCIUM, SERUM 8.6 MG/DL (8.5-10.4); CHLORIDE, SERUM 109 MMOL/L (96-112); CO2 (CARBON DIOXIDE) 26 MMOL/L (24-34); CREATININE 1.51 MG/DL (0.70-1.30); GFR AFRICAN AMERICAN 50 ML/MIN (>=60); GFR NON AFRICAN AMERICAN 43 ML/MIN (>=60); GLUCOSE, SERUM 123 MG/DL (60-99); POTASSIUM, SERUM 4.6 MMOL/L (3.5-5.3); SODIUM, SERUM 142 MMOL/L (135-148)
[2016-12-02 05:52] LABS: HEMATOCRIT 27.7 % (40.0-51.0); MEAN CORPUS HGB CONC 32.5 g/dL (32.0-36.0); MEAN CORPUSCULAR HEMOGLOB 32.7 pg (26.0-34.0); MEAN CORPUSCULAR VOLUME 100.7 fL (80-100); MEAN PLATELET VOLUME 9.4 fL (9.2-13.0); NUCLEATED RED BLOOD CELLS 0.6 /100WBC (0-0); PLATELET COUNT 238 10/3/uL (150-400); RBC DISTRIBUTION WIDTH 13.6 % (12.0-16.0); RED CELL COUNT 2.75 10/6/uL (4.7-6.1); WHITE BLOOD CELLS 9.8 10/3/uL (4.5-10.5)
[2016-12-02 05:54] LABS: MANUAL DIFF YES %
[2016-12-02 07:17] LABS: BAND NEUTROPHILS 7 %; LYMPHOCYTES 10 %; LYMPHOCYTES ABSOLUTE (CALC) 0.98 10/3/uL (0.67-4.30); MACROCYTES 1+ (5-10/OIF) (0-5/OIF); MONOCYTES 5 %; MONOCYTES ABSOLUTE (CALC) 0.49 10/3/uL (0.21-1.20); NEUTROPHILS ABSOLUTE (CALC) 8.33 10/3/uL (2.02-8.40); PLATELET ESTIMATE ADQ (ADEQUATE); SEGMENTED NEUTROPHIL (0) 78 %; TOTAL NUCLEATED CELLS 100
[2016-12-02 07:26] LABS: PROCALCITONIN 0.36 ng/mL (<0.5)
[2016-12-03 04:57] LABS: HEMATOCRIT 30.4 % (40.0-51.0); HEMOGLOBIN 9.8 g/dL (13.6-17.8)
[2016-12-03 04:59] LABS: PROTIME (NOT ORD) 22.6 SEC (12.0-14.5)
[2016-12-03 05:02] LABS: BUN (BLOOD UREA NITROGEN) 46 MG/DL (6-23); CHLORIDE, SERUM 108 MMOL/L (96-112); CO2 (CARBON DIOXIDE) 24 MMOL/L (24-34); CREATININE 1.39 MG/DL (0.70-1.30); GFR AFRICAN AMERICAN 55 ML/MIN (>=60); GFR NON AFRICAN AMERICAN 48 ML/MIN (>=60); GLUCOSE, SERUM 130 MG/DL (60-99); POTASSIUM, SERUM 3.8 MMOL/L (3.5-5.3); SODIUM, SERUM 142 MMOL/L (135-148)
[2016-12-04 05:41] LABS: BASOPHILS 0.5 %; BASOPHILS ABSOLUTE 0.04 10/3/uL (0.0-0.16); EOSINOPHILS 1.4 %; EOSINOPHILS ABSOLUTE 0.11 10/3/uL (0.0-0.53); HEMATOCRIT 29.7 % (40.0-51.0); HEMOGLOBIN 9.8 g/dL (13.6-17.8); IMMATURE GRANULOCYTES 1.4 %; IMMATURE GRANULOCYTES ABSOLUTE 0.11 10/3/uL (0.0-0.11); LYMPHOCYTES 15.6 %; LYMPHOCYTES ABSOLUTE 1.22 10/3/uL (0.67-4.30); MANUAL DIFF NO %; MEAN CORPUSCULAR HEMOGLOB 32.7 pg (26.0-34.0); MEAN PLATELET VOLUME 8.8 fL (9.2-13.0); MONOCYTES 10.6 %; MONOCYTES ABSOLUTE 0.83 10/3/uL (0.21-1.20); NEUTROPHILS 70.5 %; NEUTROPHILS ABSOLUTE 5.51 10/3/uL (2.02-8.40); PLATELET COUNT 300 10/3/uL (150-400); RBC DISTRIBUTION WIDTH 13.1 % (12.0-16.0); WHITE BLOOD CELLS 7.8 10/3/uL (4.5-10.5)
[2016-12-04 05:46] LABS: INTERNATIONAL NORMAL RATI 2.2 UNITS (-); PROTIME (NOT ORD) 23.8 SEC (12.0-14.5)
[2016-12-04 05:54] LABS: CALCIUM, SERUM 9.3 MG/DL (8.5-10.4); CHLORIDE, SERUM 105 MMOL/L (96-112); CO2 (CARBON DIOXIDE) 27 MMOL/L (24-34); CREATININE 1.28 MG/DL (0.70-1.30); GFR AFRICAN AMERICAN 61 ML/MIN (>=60); GFR NON AFRICAN AMERICAN 53 ML/MIN (>=60); GLUCOSE, SERUM 121 MG/DL (60-99); SODIUM, SERUM 141 MMOL/L (135-148)
[2016-12-04 05:58] LABS: BUN (BLOOD UREA NITROGEN) 42 MG/DL (6-23)
[2016-12-04 06:56] LABS: PROCALCITONIN 0.07 ng/mL (<0.5)
[2016-12-05 06:10] LABS: BASOPHILS 0.4 %; BASOPHILS ABSOLUTE 0.04 10/3/uL (0.0-0.16); EOSINOPHILS 1.4 %; EOSINOPHILS ABSOLUTE 0.13 10/3/uL (0.0-0.53); HEMATOCRIT 30.2 % (40.0-51.0); HEMOGLOBIN 9.9 g/dL (13.6-17.8); IMMATURE GRANULOCYTES 1.9 %; IMMATURE GRANULOCYTES ABSOLUTE 0.17 10/3/uL (0.0-0.11); LYMPHOCYTES 14.7 %; LYMPHOCYTES ABSOLUTE 1.32 10/3/uL (0.67-4.30); MEAN CORPUS HGB CONC 32.8 g/dL (32.0-36.0); MEAN CORPUSCULAR HEMOGLOB 32.2 pg (26.0-34.0); MEAN CORPUSCULAR VOLUME 98.4 fL (80-100); MEAN PLATELET VOLUME 8.8 fL (9.2-13.0); MONOCYTES 7.9 %; MONOCYTES ABSOLUTE 0.71 10/3/uL (0.21-1.20); NEUTROPHILS 73.7 %; PLATELET COUNT 327 10/3/uL (150-400); RBC DISTRIBUTION WIDTH 13.1 % (12.0-16.0); RED CELL COUNT 3.07 10/6/uL (4.7-6.1)
[2016-12-05 06:11] LABS: MANUAL DIFF NO %
[2016-12-05 06:12] LABS: INTERNATIONAL NORMAL RATI 2.1 UNITS (-); PROTIME (NOT ORD) 23.5 SEC (12.0-14.5)
[2016-12-05 06:13] LABS: BUN (BLOOD UREA NITROGEN) 39 MG/DL (6-23); CALCIUM, SERUM 9.2 MG/DL (8.5-10.4); CHLORIDE, SERUM 104 MMOL/L (96-112); CO2 (CARBON DIOXIDE) 26 MMOL/L (24-34); CREATININE 1.35 MG/DL (0.70-1.30); GFR AFRICAN AMERICAN 57 ML/MIN (>=60); GFR NON AFRICAN AMERICAN 50 ML/MIN (>=60); GLUCOSE, SERUM 119 MG/DL (60-99); POTASSIUM, SERUM 4.2 MMOL/L (3.5-5.3); SODIUM, SERUM 140 MMOL/L (135-148)
[2016-12-06 05:35] LABS: CALCIUM, SERUM 8.9 MG/DL (8.5-10.4); CHLORIDE, SERUM 101 MMOL/L (96-112); CO2 (CARBON DIOXIDE) 28 MMOL/L (24-34); CREATININE 1.49 MG/DL (0.70-1.30); GFR AFRICAN AMERICAN 51 ML/MIN (>=60); GFR NON AFRICAN AMERICAN 44 ML/MIN (>=60); GLUCOSE, SERUM 109 MG/DL (60-99); POTASSIUM, SERUM 4.3 MMOL/L (3.5-5.3); SODIUM, SERUM 137 MMOL/L (135-148)
[2016-12-06 05:38] LABS: PROTIME (NOT ORD) 22.7 SEC (12.0-14.5)
[2016-12-06 05:45] LABS: BASOPHILS 0.5 %; BASOPHILS ABSOLUTE 0.05 10/3/uL (0.0-0.16); EOSINOPHILS 1.5 %; EOSINOPHILS ABSOLUTE 0.15 10/3/uL (0.0-0.53); HEMATOCRIT 30.2 % (40.0-51.0); HEMOGLOBIN 9.8 g/dL (13.6-17.8); IMMATURE GRANULOCYTES 2.4 %; IMMATURE GRANULOCYTES ABSOLUTE 0.23 10/3/uL (0.0-0.11); LYMPHOCYTES 14.1 %; LYMPHOCYTES ABSOLUTE 1.37 10/3/uL (0.67-4.30); MANUAL DIFF NO %; MEAN CORPUS HGB CONC 32.5 g/dL (32.0-36.0); MEAN CORPUSCULAR HEMOGLOB 32.5 pg (26.0-34.0); MEAN PLATELET VOLUME 8.8 fL (9.2-13.0); MONOCYTES ABSOLUTE 0.78 10/3/uL (0.21-1.20); NEUTROPHILS 73.5 %; NEUTROPHILS ABSOLUTE 7.12 10/3/uL (2.02-8.40); PLATELET COUNT 337 10/3/uL (150-400); RBC DISTRIBUTION WIDTH 13.3 % (12.0-16.0); RED CELL COUNT 3.02 10/6/uL (4.7-6.1); WHITE BLOOD CELLS 9.7 10/3/uL (4.5-10.5)
[2016-12-06 05:49] LABS: BUN (BLOOD UREA NITROGEN) 43 MG/DL (6-23)
== END 2016-12-06 16:15 | DRG 469 ==
LOC: ER 17:22 → 3JRC 21:23
PROVIDERS: Hospitalist; Internal Medicine; Nurse Practitioner; Nurse Practitioner Acute Care; Specialist
PROC: 0SRB02A Replacement of Left Hip Joint with Metal on Polyethylene Synthetic Substitute, Uncemented, Open Approach (ICD-10-PCS; principal; 2016-11-27)
DX: S72.002A Fracture of unspecified part of neck of left femur, initial encounter for closed fracture (principal); J18.9 Pneumonia, unspecified organism; K56.7 Ileus, unspecified; I13.0 Hypertensive heart and chronic kidney disease with heart failure and stage 1 through stage 4 chronic kidney disease, or unspecified chronic kidney disease; J44.0 Chronic obstructive pulmonary disease with (acute) lower respiratory infection; I50.22 Chronic systolic (congestive) heart failure; D51.9 Vitamin B12 deficiency anemia, unspecified; J44.1 Chronic obstructive pulmonary disease with (acute) exacerbation; D62 Acute posthemorrhagic anemia; J98.11 Atelectasis; K91.89 Other postprocedural complications and disorders of digestive system; I25.10 Atherosclerotic heart disease of native coronary artery without angina pectoris; E78.5 Hyperlipidemia, unspecified; M19.90 Unspecified osteoarthritis, unspecified site; N18.3 Chronic kidney disease, stage 3 (moderate); W01.0XXA Fall on same level from slipping, tripping and stumbling without subsequent striking against object, initial encounter; Y92.9 Unspecified place or not applicable; Z87.891 Personal history of nicotine dependence; Z95.1 Presence of aortocoronary bypass graft; Z95.5 Presence of coronary angioplasty implant and graft; Z79.82 Long term (current) use of aspirin; Z79.899 Other long term (current) drug therapy; Z79.02 Long term (current) use of antithrombotics/antiplatelets; D50.9 Iron deficiency anemia, unspecified; I73.9 Peripheral vascular disease, unspecified
CPT/HCPCS: 36415; 71010; 72170; 73502-LT; 74000; 80048; 80053; 80061; 81001; 82607; 82728; 83036; 83540; 83550; 83615; 83735; 83880; 84100; 84145; 84439; 84443; 84484; 85014; 85018; 85025; 85610; 85730; 86850; 86900; 86901; 87641; 88305; 88311; 93005; 94640; 96374; 96375; 96376; 97110-GP; 97116-GP; 97161-GP; 97166-GO; 97530-GP; 97535-GO; 99285; A9270-GY; C1713; C1776; G8978-CL-GP; G8979-CJ-GP; J0360; J0690; J1170; J1885; J2250; J2270; J2274; J2405; J2710; J2795; J3010; J3370